=== PATIENT | male | born 1985 | race African-American/Black ===

== ENCOUNTER → 2019-07-18 | Outpatient (CLI) | payer OTHER ==
[~2019-07-18] MED LIST: IOHEXOL 240 MG/ML 50ML VIAL. ONE; IOHEXOL 240 MG/ML 50ML VIAL. PO ONE; IOHEXOL 300 MG/ML 75 ML VIAL. IV ONE
--- NOTE | 2019-07-18 15:28 | RAD ---
CT of the abdomen and pelvis with contrast 07/18/2019 INDICATION: 38 pound weight fluctuation. COMPARISON STUDY: None TECHNIQUE: Multidetector CT imaging of the abdomen and pelvis was performed following the administration of IV and enteric contrast. FINDINGS: Visualized lung bases demonstrate no acute abnormality. The liver, gallbladder, spleen, adrenal glands, and pancreas are unremarkable. The bilateral kidneys demonstrate no acute abnormality. A small partially exophytic cyst is noted in the mid left kidney. Bladder is grossly unremarkable. The ureters are normal in course and caliber. There is no bowel obstruction. No evidence of acute inflammatory process involving the bowel is identified. Trace free fluid is seen in the pelvis of uncertain etiology.There is no pneumoperitoneum identified. No acute osseous changes are identified. Impression: 1. Trace free pelvic fluid which is abnormal, but nonspecific in a male patient 2. No other acute intra-abdominal abnormality is identified CT DOSING PQRS STATEMENT: One or more of the following individualized dose reduction techniques were utilized for this examination: 1. Automated exposure control 2. Adjustment of the mA and/or kV according to patient size 3. Use of iterative reconstruction technique Electronically signed by: Hammad Crawford MD (07/18/2019 3:25 PM) [id number]
== END | disposition home or self-care (01) ==
LOC: CT 12:32
PROVIDERS: ATTEND Family Medicine
DX: N28.1 Cyst of kidney, acquired (principal); R63.5 Abnormal weight gain
CPT/HCPCS: 74177; Q9966; Q9967

== ENCOUNTER 2019-08-31 07:19 | Emergency (ER) | payer OTHER ==
[~2019-08-31] VITALS: Ht 182.9 cm; Wt 113.6 kg
[2019-08-31] MEDS: LIDOCAINE 2% 20 ML VIAL. IJ ONE (08:00)
--- NOTE | 2019-08-31 08:44 | PHYS DOC ---
Adult General Chief Complaint Chief Complaint: LACERATION/AVULSION HPI HPI Patient is a 34-year-old male who presented to ER today for evaluation of a laceration on HIS RIGHT 4TH FINGER while he was doing the dishes today. He is not up to date on vaccination. It just happened this morning. Review of Systems Review of Systems Constitutional: Denies fever or chills [] Eyes: Denies change in visual acuity, redness, or eye pain [] HENT: Denies nasal congestion or sore throat [] Respiratory: Denies cough or shortness of breath [] Cardiovascular: No additional information not addressed in HPI [] GI: Denies abdominal pain, nausea, vomiting, bloody stools or diarrhea [] : Denies dysuria or hematuria [] Musculoskeletal: Denies back pain or joint pain [] Integument: Denies rash or skin lesions. POSITIVE FOR FINGER LACERATION. Neurologic: Denies headache, focal weakness or sensory changes [] Endocrine: Denies polyuria or polydipsia [] All other systems were reviewed and found to be within normal limits, except as documented in this note. Current Medications Current Medications Current Medications Medications (Trade) Dose Ordered Sig/Sabrina Start Time Stop Time Status Last Admin Dose Admin Diphtheria/ Tetanus/Acell Pertussis (Boostrix) 0.5 ml ONCE ONCE 08/31/19 08:00 08/31/19 08:01 DC Lidocaine HCl 20 ml 1X ONCE 08/31/19 08:00 08/31/19 08:01 DC 08/31/19 08:00 20 ML Allergies Allergies Allergies Coded Allergies Type Severity Reaction Last Updated Verified No Known Drug Allergies 07/18/19 No Physical Exam Physical Exam Constitutional: Well developed, well nourished, no acute distress, non-toxic appearance. [] HENT: Normocephalic, atraumatic, bilateral external ears normal, oropharynx moist, no oral exudates, nose normal. [] Eyes: PERRLA, EOMI, conjunctiva normal, no discharge. [] Neck: Normal range of motion, no tenderness, supple, no stridor. [] Cardiovascular:Heart rate regular rhythm, no murmur [] Lungs & Thorax: Bilateral breath sounds clear to auscultation [] Abdomen: Bowel sounds normal, soft, no tenderness, no masses, no pulsatile masses. [] Skin: Warm, dry, no erythema, no rash. 2.5 CM LACERATION ON RIGHT 4TH FINGER, ON THE ULNAR SIDE OF THE FINGER, NO TENDON INJURY, NO PULSATING BLEEDING. Back: No tenderness, no CVA tenderness. [] Extremities: No tenderness, no cyanosis, no clubbing, ROM intact, no edema. [] Neurologic: Alert and oriented X 3, normal motor function, normal sensory function, no focal deficits noted. [] Psychologic: Affect normal, judgement normal, mood normal. [] EKG EKG [] Radiology/Procedures Radiology/Procedures [] Course & Med Decision Making Course & Med Decision Making Pertinent Labs and Imaging studies reviewed. (See chart for details) There was no tendon laceration, no vascular injury. THE WOUND WAS CLOSED WITH 4 SUTURES, 4-0-PROLEN. Dragon Disclaimer Dragon Disclaimer This electronic medical record was generated, in whole or in part, using a voice recognition dictation system. Departure Departure: Impression: Primary Impression: Finger laceration Additional Impression: Laceration of finger of right hand Disposition: HOME, SELF-CARE Condition: STABLE Referrals: CYN NOLASCO DO (PCP) follow up with your doctor in 10 days for sutures removal. Patient Instructions: Diphtheria Toxoid; Tetanus Toxoid Adsorbed, DT, Td, Laceration Care, Adult Additional Instructions: Thank you for visiting our Emergency Department. We appreciate you trusting us with your care. If any additional problems come up don't hesitate to return to visit us. Please follow up with your primary care provider so they can plan additional care if needed and know about the problem that you had. If symptoms worsen come back to the Emergency Department. Any concerning symptoms that start such as chest pain, shortness of air, weakness or numbness on one side of the body, running high fevers or any other concerning symptoms return to the ER. Laceration Repair Lac Repair Indication: RIGHT 4TH FINGER LACERATION Procedure: The patient was placed in the appropriate position and anesthesia around the RIGHT 4TH FINGER WAS ANESTHESIZED WITH 8 ML OF 1% PLAIN LIDOCAINE. The area was then CLEANED WITH BETADINE. The laceration was CLOSED WITH 4 SUTURES, 4-0-PROLENE. The wound area was then dressed with NONSTICK GAUZE.. Total repaired wound length: 2.5 CM Other Items: [OTHER ITEMS] The patient tolerated the procedure WELL. Complications: [COMPLICATIONS]. NO Problem Qualifiers LORRAINE LUCERO 5, 2020 08:44
[2019-08-31 09:05] VITALS: BP 143/96
[2019-08-31] MEDS: DIPHTH,PERTUSS(ACELL),TET TOX 0.5 ML DISP.SYRIN. VAX IM ONE (09:05)
== END 2019-08-31 09:09 | disposition home or self-care (01) ==
LOC: ER 07:19
DX: S61.214A Laceration without foreign body of right ring finger without damage to nail, initial encounter (principal); W26.8XXA Contact with other sharp object(s), not elsewhere classified, initial encounter; Y93.89 Activity, other specified; Y92.89 Other specified places as the place of occurrence of the external cause; Y99.8 Other external cause status
CPT/HCPCS: 12001; 90471; 90715; 99283-25; J2001

== ENCOUNTER 2019-12-27 12:23 | Emergency (ER) | payer OTHER ==
[~2019-12-27] VITALS: Ht 185.4 cm; Wt 120.0 kg
[2019-12-27] MEDS ORDERED: ASPIRIN CHEWABLE 81 MG TABLET. PO ONE (12:45)
--- NOTE | 2019-12-27 12:47 | PHYS DOC ---
Past History Past Medical History: Anxiety, Depression, Hypertension, Other Additional Past Medical Histor: disc disease; left ventricular hypertrophy Past Surgical History: No Surgical History Smoking: Non-smoker Additional Smoking Information: DIps Alcohol Use: None General Adult EDM: Chief Complaint: CHEST PAIN HPI: HPI: Patient is a 34-year-old male who presents to the emergency department for evaluation. He states that he normally takes Ambien to sleep and normally does not wake up in the middle of the night, but he states he was awakened at about 1 AM with severe chest pressure, which was nonradiating. He states the discomfort continued until he presents to the emergency department, although it has let up somewhat. There are no alleviating or exacerbating factors to the patient's symptoms. He denies any pleuritic chest pain or significant shortness of breath, exertional chest pain, diaphoresis, nausea, vomiting, or abdominal pain. The patient states that he had a similar episode of pain about 6 months ago and saw her handle machine operator and underwent a full work-up including a Holter monitor and stress test. He states he was diagnosed with left ventricular hypertrophy and hypertension, and placed on medications for the symptoms and it was thought that his symptoms might be attributed to GERD at that time. The pain that he is experiencing feels somewhat similar. There are no other alleviating or exacerbating factors to his symptoms. The patient has no personal history of coronary disease or family history of premature onset coronary artery disease. Review of Systems: Review of Systems: Constitutional: Denies fever or chills Eyes: Denies change in visual acuity HENT: Denies nasal congestion or sore throat Respiratory: Denies cough or shortness of breath Cardiovascular: As per HPI GI: Denies abdominal pain, nausea, vomiting, bloody stools or diarrhea : Denies dysuria Musculoskeletal: Denies back pain or joint pain Integument: Denies rash Neurologic: Denies headache, focal weakness or sensory changes Endocrine: Denies polyuria or polydipsia Lymphatic: Denies swollen glands Psychiatric: Denies depression or anxiety Heart Score: HEART Score for Chest Pain: HEART Score for Chest Pain Response (Comments) Value History Slighlty/Non-Suspicious 0 ECG Nonspecific Repolarizatio 1 Age < 45 0 Risk Factors 1 or 2 Risk Factors 1 Troponin < Normal Limit 0 Total 2 Risk Factors: Risk Factors: DM, Current or recent (<one month) smoker, HTN, HLP, family history of CAD, obesity. Risk Scores: Score 0 - 3: 2.5% MACE over next 6 weeks - Discharge Home Score 4 - 6: 20.3% MACE over next 6 weeks - Admit for Clinical Observation Score 7 - 10: 72.7% MACE over next 6 weeks - Early Invasive Strategies Allergies: Allergies: Allergies Coded Allergies Type Severity Reaction Last Updated Verified No Known Drug Allergies 07/18/19 No Physical Exam: PE: PHYSICAL EXAM: CONSTITUTIONAL: Well developed, well nourished HEAD: normocephalic, atraumatic EENT: PERRL, EOMI. Conjunctivae normal color, sclerae non-icteric; moist mucous membranes. NECK: Supple, non-tender; no meningismus. LUNGS: Lungs CTA, breathing even and unlabored. Normal air movement. HEART: Regular rate and rhythm, no murmur CHEST: No deformity; there is mild tenderness to palpation of the anterior chest wall which reproduces the patient's pain. ABDOMEN: The abdomen is soft, and non-tender, no masses or bruits. EXTREM: Normal ROM; no deformity, no calf tenderness. Normal pulses palpable in all extremities. There is no pedal edema. SKIN: No rash; no diaphoresis NEURO: Alert; normal speech and cognition; CN's grossly intact; strength grossly intact without focal deficit. BACK: No CVA TTP. Current Patient Data: Labs: Laboratory Tests Test 12/27/19 12:59 White Blood Count 7.8 x10^3/uL Red Blood Count 5.06 x10^6/uL Hemoglobin 14.7 g/dL Hematocrit 43.4 % Mean Corpuscular Volume 86 fL Mean Corpuscular Hemoglobin 29 pg Mean Corpuscular Hemoglobin Concent 34 g/dL Red Cell Distribution Width 12.0 % Platelet Count 241 x10^3/uL Neutrophils (%) (Auto) 59 % Lymphocytes (%) (Auto) 26 % Monocytes (%) (Auto) 11 % Eosinophils (%) (Auto) 3 % Basophils (%) (Auto) 1 % Neutrophils # (Auto) 4.6 x10^3uL Lymphocytes # (Auto) 2.0 x10^3/uL Monocytes # (Auto) 0.9 x10^3/uL Eosinophils # (Auto) 0.3 x10^3/uL Basophils # (Auto) 0.1 x10^3/uL D-Dimer (Jes) < 0.19 mg/L Sodium Level 139 mmol/L Potassium Level 3.8 mmol/L Chloride Level 103 mmol/L Carbon Dioxide Level 28 mmol/L Anion Gap 8 Blood Urea Nitrogen 11 mg/dL Creatinine 1.0 mg/dL Estimated GFR (Cockcroft-Gault) 104.8 BUN/Creatinine Ratio 11 Glucose Level 98 mg/dL Calcium Level 8.8 mg/dL Total Bilirubin 0.6 mg/dL Aspartate Amino Transf (AST/SGOT) 12 U/L Alanine Aminotransferase (ALT/SGPT) 35 U/L Alkaline Phosphatase 68 U/L Troponin I Quantitative < 0.017 ng/mL Total Protein 7.5 g/dL Albumin 3.8 g/dL Albumin/Globulin Ratio 1.0 Current Medications Medications (Trade) Dose Ordered Sig/Sabrina Route PRN Reason Start Time Stop Time Status Last Admin Dose Admin Aspirin (Aspirin Chewable) 324 mg 1X ONCE PO 12/27/19 12:45 12/27/19 13:03 DC 12/27/19 12:48 Vital Signs: Vital Signs Date Time Temp Pulse Resp B/P (MAP) Pulse Ox O2 Delivery O2 Flow Rate FiO2 12/27/19 12:32 98.3 85 14 151/99 (116) 98 Room Air EKG: EKG: [] Normal sinus rhythm at a rate of 85 bpm, normal axis, normal intervals, nonspecific ST/T changes are present. There are no acute ischemic changes noted. Radiology/Procedures: Radiology/Procedures: PROCEDURE: CHEST PA & LATERAL Chest radiograph 12/27/2019 12:44 PM INDICATION: Chest pain COMPARISON: None available TECHNIQUE: Frontal and lateral views of the chest are provided. FINDINGS: The cardiomediastinal silhouette is within normal limits. There are no pleural effusions. There is no pulmonary vascular congestion. There is no pneumothorax. The lungs are clear. No significant osseous abnormality is identified. IMPRESSION: No acute cardiopulmonary process.[] Course & Med Decision Making: Course & Med Decision Making Pertinent Labs and Imaging studies reviewed. (See chart for details) [] Patient remains stable. I discussed test results, the need for close follow- up, and return precautions. Dragon Disclaimer: Dragon Disclaimer: This electronic medical record was generated, in whole or in part, using a voice recognition dictation system. Departure Departure: Impression: Primary Impression: Atypical chest pain Disposition: HOME/RESIDENCE PRIOR TO ADM Condition: STABLE Referrals: CYN NOLASCO DO (PCP) Patient Instructions: Chest Pain (Nonspecific) Justification of Admission: Justification of Admission: Justification of Admission Dx: N/A LAURO MICHELLE MD Dec 27, 2019 12:47
--- NOTE | 2019-12-27 13:04 | RAD ---
Chest radiograph 12/27/2019 12:44 PM INDICATION: Chest pain COMPARISON: None available TECHNIQUE: Frontal and lateral views of the chest are provided. FINDINGS: The cardiomediastinal silhouette is within normal limits. There are no pleural effusions. There is no pulmonary vascular congestion. There is no pneumothorax. The lungs are clear. No significant osseous abnormality is identified. IMPRESSION: No acute cardiopulmonary process. Electronically signed by: Antoinette Harry MD (12/27/2019 1:01 PM) [id number]
[2019-12-27 13:11] LABS: BASO # 0.1 x10^3/uL (0.0-0.2); BASO % 1 % (0-3); EOS # 0.3 x10^3/uL (0.0-0.7); EOS % 3 % (0-3); HEMATOCRIT 43.4 % (39.0-53.0); HEMOGLOBIN 14.7 g/dL (13.0-17.5); LYMPH % 26 % (24-48); MEAN CORPUSCULAR HEMOGLOBIN 29 pg (25-35); MEAN CORPUSCULAR HGB CONC 34 g/dL (31-37); MEAN CORPUSCULAR VOLUME 86 fL (79-100); MONO # 0.9 x10^3/uL (0.0-1.1); MONO % 11 % (0-9); NEUT # 4.6 x10^3uL (1.8-7.7); NEUT % 59 % (31-73); PLATELET COUNT 241 x10^3/uL (140-400); RED BLOOD COUNT 5.06 x10^6/uL (4.30-5.70); WHITE BLOOD COUNT 7.8 x10^3/uL (4.0-11.0)
[2019-12-27 13:22] LABS: CALCIUM 8.8 mg/dL (8.5-10.1); GFR 104.8; POTASSIUM 3.8 mmol/L (3.5-5.1)
[2019-12-27 13:27] LABS: ALBUMIN 3.8 g/dL (3.4-5.0); TOTAL BILIRUBIN 0.6 mg/dL (0.2-1.0); TOTAL PROTEIN 7.5 g/dL (6.4-8.2)
[2019-12-27 13:53] VITALS: BP 151/85
--- NOTE | 2019-12-27 16:07 | EKG ---
[address] [address] Test Date: 2019-12-27 Test Time: 12:29:09 Pat Name: SHERYL SIEGEL Department: Room: Gender: M [employer]: : 1985 Requested By: LAURO MICHELLE Order Number: [id number] Reading MD: Measurements Intervals [place] Rate: 85 P: 41 ME: 138 QRS: 48 QRSD: 86 T: 22 QT: 350 QTc: 417 Interpretive Statements SINUS RHYTHM NORMAL ECG RI6.02 No previous ECG available for comparison
== END 2019-12-27 14:00 | disposition home or self-care (01) ==
LOC: ER 12:23
DX: R07.89 Other chest pain (principal); I10 Essential (primary) hypertension; F41.9 Anxiety disorder, unspecified; F32.9 Major depressive disorder, single episode, unspecified
CPT/HCPCS: 36415; 71046; 80053; 84484; 85025; 85379; 93005; 99285

== ENCOUNTER 2020-09-09 13:00 | Emergency (ER) | payer OTHER ==
[~2020-09-09] VITALS: Ht 185.4 cm; Wt 120.0 kg
[2020-09-09 13:00] VITALS: BP 151/85
[2020-09-09] MEDS ORDERED: ASPIRIN CHEWABLE 81 MG TABLET. PO ONE (13:30)
--- NOTE | 2020-09-09 13:39 | RAD ---
INDICATION: Reason: CHEST PAIN / Spl. Instructions: / History: COMPARISON: December 27, 2019 FINDINGS: Single view of chest obtained. Cardiomediastinal silhouette is upper limits of normal but likely exaggerated by portable technique. No focal airspace consolidation or pulmonary edema. IMPRESSION: * No focal airspace consolidation or edema. Electronically signed by: Cheikh Hall MD (09/09/2020 1:37 PM) [id number]
--- NOTE | 2020-09-09 13:50 | PHYS DOC ---
Past History Past Medical History: Anxiety, Depression, Hypertension, Other Additional Past Medical Histor: disc disease; left ventricular hypertrophy Past Surgical History: No Surgical History Smoking: Non-smoker Alcohol Use: None Adult General Chief Complaint Chief Complaint: CHEST PAIN HPI HPI Patient is a 35yo male who presents for chest pain. This is a chronic process and something he has been battling for "months". Nothing known makes better, he has DDD in his back and flare ups make worse. States when epidural steroid shots wear off and his pain increase he has "twinges" of substernal pain that is intermittent without ranges. He has seen local Cardiologists in past 12 mo and has had unremarkable stress test, echos and recordings in past 6 months. He has no significant risk factors for CAD, no smoking, no FHx early cardiac disease, no history of passing out with sports/physical activities etc. He is asymptomatic at present but is concerned as he felt a brief self-limiting episode of chest "twinges" when getting ready for work Review of Systems Review of Systems Fourteen body systems of review of systems have been reviewed. See HPI for pertinent positives and negative responses, other powell all other systems are negative, non-pertinent or non-contributory Current Medications Current Medications Current Medications Medications (Trade) Dose Ordered Sig/Sabrina Start Time Stop Time Status Last Admin Dose Admin Aspirin (Aspirin Chewable) 162 mg 1X ONCE 09/09/20 13:30 09/09/20 13:37 DC Allergies Allergies Allergies Coded Allergies Type Severity Reaction Last Updated Verified No Known Drug Allergies 07/18/19 No Physical Exam Physical Exam Constitutional: Well developed, well nourished, no acute distress, non-toxic appearance. HENT: Normocephalic, atraumatic, bilateral external ears normal, oropharynx moist, no oral exudates, nose normal. Eyes: PERRLA, EOMI, conjunctiva normal, no discharge. Neck: Normal range of motion, no tenderness, supple, no stridor. Cardiovascular: Heart rate regular, sinus rhythm, no murmurs rubs or gallops Lungs & Thorax: Bilateral breath sounds clear to auscultation Abdomen: Bowel sounds normal, soft, no tenderness, no masses, no pulsatile masses. Nonsurgical abdomen, no peritoneal signs Skin: Warm, dry, no erythema, no rash. Back: No tenderness, no CVA tenderness. Extremities: No tenderness, no cyanosis, no clubbing, ROM intact, no edema. Neurologic: Alert and oriented X 3, grossly normal motor & sensory function, no focal deficits noted. Psychologic: Affect normal, judgement normal, mood normal. Current Patient Data Lab Results Laboratory Tests Test 09/09/20 14:06 White Blood Count 6.6 x10^3/uL (4.0-11.0) Red Blood Count 4.71 x10^6/uL (4.30-5.70) Hemoglobin 13.4 g/dL (13.0-17.5) Hematocrit 40.4 % (39.0-53.0) Mean Corpuscular Volume 86 fL (79-100) Mean Corpuscular Hemoglobin 29 pg (25-35) Mean Corpuscular Hemoglobin Concent 33 g/dL (31-37) Red Cell Distribution Width 12.3 % (11.5-14.5) Platelet Count 249 x10^3/uL (140-400) Neutrophils (%) (Auto) 55 % (31-73) Lymphocytes (%) (Auto) 31 % (24-48) Monocytes (%) (Auto) 11 % (0-9) Eosinophils (%) (Auto) 3 % (0-3) Basophils (%) (Auto) 1 % (0-3) Neutrophils # (Auto) 3.6 x10^3uL (1.8-7.7) Lymphocytes # (Auto) 2.1 x10^3/uL (1.0-4.8) Monocytes # (Auto) 0.7 x10^3/uL (0.0-1.1) Eosinophils # (Auto) 0.2 x10^3/uL (0.0-0.7) Basophils # (Auto) 0.0 x10^3/uL (0.0-0.2) Sodium Level 141 mmol/L (136-145) Potassium Level 3.8 mmol/L (3.5-5.1) Chloride Level 107 mmol/L (98-107) Carbon Dioxide Level 28 mmol/L (21-32) Anion Gap 6 (6-14) Blood Urea Nitrogen 14 mg/dL (8-26) Creatinine 1.0 mg/dL (0.7-1.3) Estimated GFR (Cockcroft-Gault) 104.1 BUN/Creatinine Ratio 14 (6-20) Glucose Level 95 mg/dL (70-99) Calcium Level 8.5 mg/dL (8.5-10.1) Total Bilirubin 0.7 mg/dL (0.2-1.0) Aspartate Amino Transf (AST/SGOT) 13 U/L (15-37) Alanine Aminotransferase (ALT/SGPT) 29 U/L (16-63) Alkaline Phosphatase 62 U/L (46-116) Troponin I Quantitative < 0.017 ng/mL (0-0.055) Total Protein 6.9 g/dL (6.4-8.2) Albumin 3.7 g/dL (3.4-5.0) Albumin/Globulin Ratio 1.2 (1.0-1.7) EKG EKG See uploaded EKG strip that was clear of any conduction abnormalities, interval abnormalities and/or STEMI Radiology/Procedures Radiology/Procedures PROCEDURE: PORTABLE CHEST 1V INDICATION: Reason: CHEST PAIN / Spl. Instructions: / History: COMPARISON: December 27, 2019 FINDINGS: Single view of chest obtained. Cardiomediastinal silhouette is upper limits of normal but likely exaggerated by portable technique. No focal airspace consolidation or pulmonary edema. IMPRESSION: * No focal airspace consolidation or edema. Electronically signed by: Cheikh Hall MD (09/09/2020 1:37 PM) [id number] Heart Score C/O Chest Pain: Yes HEART Score for Chest Pain: HEART Score for Chest Pain Response (Comments) Value History Slighlty/Non-Suspicious 0 ECG Normal 0 Age < 45 0 Risk Factors 1 or 2 Risk Factors 1 Troponin < Normal Limit 0 Total 1 Risk Factors: Risk Factors: DM, Current or recent (<one month) smoker, HTN, HLP, family history of CAD, obesity. Risk Scores: Risk Factors: DM, Current or recent (<one month) smoker, HTN, HLP, family history of CAD, obesity. Course & Med Decision Making Course & Med Decision Making Hemodynamically stable patient with history and physical exam grossly non- concerning ER workup obtained and reviewed with patient with good understanding, no major concern Discussed most likely diagnosis of non-cardiac chest pain. Reviewed HEART score, no indication for further workup and/or admission PCP and personal coach follow-up advised. Discussed referred pain likely due to untreated back/LE pain Strict return precautions were discussed with good understanding by patient, all questions and concerns addressed prior to ER departure Parris Disclaimer Parris Disclaimer This electronic medical record was generated, in whole or in part, using a voice recognition dictation system. Departure Departure: Impression: Primary Impression: Chest pain, unspecified Disposition: 01 DC HOME SELF CARE/HOMELESS Condition: GOOD Referrals: CYN NOLASCO DO (PCP) Patient Instructions: Chest Pain (Nonspecific) Additional Instructions: You were seen for chest pain. Your workup did not show any acute abnormalities today, but does not indicate that you do not have underlying cardiovascular disease. You do need to follow up with your primary doctor and/or personal coach for further evaluation and treatment. You should return to the ED if you develop worsening chest pain, shortness of breath, fever, abnormal sweating, leg swelling, or any other new or concerning symptoms. LINDA LANCE DO Sep 09, 2020 13:49
[2020-09-09 14:21] LABS: BASO % 1 % (0-3); EOS # 0.2 x10^3/uL (0.0-0.7); EOS % 3 % (0-3); HEMATOCRIT 40.4 % (39.0-53.0); HEMOGLOBIN 13.4 g/dL (13.0-17.5); LYMPH # 2.1 x10^3/uL (1.0-4.8); LYMPH % 31 % (24-48); MEAN CORPUSCULAR HEMOGLOBIN 29 pg (25-35); MEAN CORPUSCULAR HGB CONC 33 g/dL (31-37); MEAN CORPUSCULAR VOLUME 86 fL (79-100); MONO # 0.7 x10^3/uL (0.0-1.1); MONO % 11 % (0-9); NEUT # 3.6 x10^3uL (1.8-7.7); NEUT % 55 % (31-73); PLATELET COUNT 249 x10^3/uL (140-400); RED BLOOD COUNT 4.71 x10^6/uL (4.30-5.70); RED CELL DISTRIBUTION WIDTH 12.3 % (11.5-14.5); WHITE BLOOD COUNT 6.6 x10^3/uL (4.0-11.0)
[2020-09-09 14:33] LABS: CALCIUM 8.5 mg/dL (8.5-10.1); GFR 104.1; POTASSIUM 3.8 mmol/L (3.5-5.1)
[2020-09-09 14:54] LABS: ALBUMIN 3.7 g/dL (3.4-5.0); ALBUMIN/GLOBULIN RATIO 1.2 (1.0-1.7); TOTAL BILIRUBIN 0.7 mg/dL (0.2-1.0); TOTAL PROTEIN 6.9 g/dL (6.4-8.2)
--- NOTE | 2020-09-09 14:58 | EKG ---
[facility] ED [facility] [address] [place] [id number] Test Date: 2020-09-09 Test Time: 13:05:29 Pat Name: SHERYL SIEGEL Department: Room: Gender: M Rn Clinician: JESU : 1985 Requested By: LINDA LANCE Order Number: [id number] Reading MD: Measurements Intervals [place] Rate: 87 P: 45 MT: 144 QRS: 53 QRSD: 90 T: 60 QT: 342 QTc: 417 Interpretive Statements SINUS RHYTHM NORMAL ECG RI6.02 No previous ECG available for comparison
== END 2020-09-09 15:12 | disposition home or self-care (01) ==
LOC: ER 13:00
DX: R07.2 Precordial pain (principal); F41.9 Anxiety disorder, unspecified; F31.9 Bipolar disorder, unspecified; I10 Essential (primary) hypertension
CPT/HCPCS: 36415; 71045; 80053; 84484; 85025; 93005; 99285-25

== ENCOUNTER → 2020-09-25 | Day surgery (SDC) | payer OTHER ==
[2020-09-25 14:30] VITALS: BP 133/86
== END | disposition home or self-care (01) ==
LOC: SURG 14:10
PROVIDERS: ATTEND Anesthesiology
DX: M54.16 Radiculopathy, lumbar region (principal); M79.605 Pain in left leg; G89.29 Other chronic pain; I10 Essential (primary) hypertension; M54.2 Cervicalgia; M19.90 Unspecified osteoarthritis, unspecified site; E11.9 Type 2 diabetes mellitus without complications; Z98.890 Other specified postprocedural states; Z79.899 Other long term (current) drug therapy; Z79.84 Long term (current) use of oral hypoglycemic drugs
CPT/HCPCS: 99204; G0463